=== PATIENT | female | born 1950 | race Caucasian/White ===

== ENCOUNTER → 2016-04-20 | Outpatient (CLI) | payer MEDICARE, MEDICAID ==
[~2016-04-20] MED LIST: ABILIFY20 MG PO; ALLFEN400 MG PO; ASPIRIN 32325 MG/TAB PO; ASPIRIN E.C. 8181 MG PO; ATIVAN 0.50.5 MG/TAB PO; CLARITIN 1010 MG/TAB PO; COGENTIN 1MG1 MG/TAB PO; DEPAKOTE 250MG250 MG PO; DESYREL 50MG50 MG PO; GERI-TUSSI100 MG/5 M PO; HALDOL 1MG T1 MG/TAB PO; INVEGA6 MG PO; IPRATROPIUM BROM3 M1 IH; KLONOPIN 1MG1 MG PO; LITHIUM 30300 MG/CAP PO; LITHOBID 3300 MG/TAB PO; MACROBID 1100 MG/CAP; MACROBID 1100 MG/CAP PO; MIRALAX PA17 GM/Dose PO; MULTIVITAMIN1 CTB PO; NORCO 325 MG-51 TAB PO; NYSTATIN OR100 MU/ML; RISPERDAL 1M1 MG/TAB PO; RISPERDAL2 MG PO; ROXICODONE 55 MG/TAB PO; SALINE MIST 4545 ML; STOOL SOFTENER100 M2 PO; TOPROL XL 25MG25 MG PO; TYLENOL 325MG325 MG PO; TYLENOL 500MG500 MG PO; TYLENOL 8 HR PO; ULTRAM 50MG TAB50 MG PO; ZYRTEC 10MG10 MG PO; [UNRECOGNIZED DRUG - OTHER] IJ
== END ==
LOC: BHSO 10:52
DX: F25.0 Schizoaffective disorder, bipolar type (principal)

== ENCOUNTER → 2016-06-29 | Outpatient (CLI) | payer MEDICARE, MEDICAID | LOC: BHSO 15:53 | DX: Z01.89 Encounter for other specified special examinations (principal) ==

== ENCOUNTER → 2016-08-03 | Outpatient (CLI) | payer MEDICARE, MEDICAID | LOC: BHSO 09:12 | DX: F20.9 Schizophrenia, unspecified (principal) ==

== ENCOUNTER → 2016-08-31 | Outpatient (CLI) | payer MEDICARE, MEDICAID | LOC: BHSO 09:15 | DX: F25.0 Schizoaffective disorder, bipolar type (principal) ==

== ENCOUNTER → 2016-09-28 | Outpatient (CLI) | payer MEDICARE, MEDICAID | LOC: BHSO 09:47 | DX: F25.0 Schizoaffective disorder, bipolar type (principal) ==

== ENCOUNTER → 2016-10-26 | Outpatient (CLI) | payer MEDICARE, MEDICAID | LOC: BHSO 10:02 | DX: F20.9 Schizophrenia, unspecified (principal) ==

== ENCOUNTER → 2016-11-28 | Outpatient (CLI) | payer MEDICARE, MEDICAID | LOC: BHSO 10:06 | DX: Z01.89 Encounter for other specified special examinations (principal) ==

== ENCOUNTER → 2016-12-28 | Outpatient (CLI) | payer MEDICARE, MEDICAID | LOC: BHSO 09:58 | DX: F25.0 Schizoaffective disorder, bipolar type (principal) ==

== ENCOUNTER → 2017-02-01 | Outpatient (CLI) | payer MEDICARE, MEDICAID | LOC: BHSO 11:10 | DX: F20.9 Schizophrenia, unspecified (principal) ==

== ENCOUNTER → 2017-04-17 | Outpatient (CLI) | payer MEDICARE, MEDICAID | LOC: BHSO 09:26 | DX: F25.0 Schizoaffective disorder, bipolar type (principal) | CPT/HCPCS: G0463 ==

== ENCOUNTER → 2017-07-17 | Outpatient (CLI) | payer MEDICARE, MEDICAID | LOC: BHSO 10:29 | DX: F20.9 Schizophrenia, unspecified (principal) | CPT/HCPCS: G0463 ==

== ENCOUNTER 2017-08-01 14:16 | Emergency (ER) | payer MEDICARE, MEDICAID ==
[~2017-08-01] VITALS: Ht 160 cm; Wt 97.3 kg
[2017-08-01 14:24] VITALS: BP 130/78; PULSE 118
[2017-08-01 15:38] LABS: COLLECTION METHOD CLEAN CATCH
[2017-08-01 15:52] LABS: MUCOUS Present /lpf; PH 5 (5-8); SQUAMOUS EPITHELIAL 0-2 /hpf; URINE APPEARANCE Clear; URINE BACTERIA Moderate /hpf; URINE BILIRUBIN Negative (NEGATIVE); URINE BLOOD 2+ (NEGATIVE); URINE COLOR Yellow; URINE GLUCOSE 2+ (NEGATIVE); URINE KETONE Negative (NEGATIVE); URINE LEUKOCYTE ESTERASE Negative (NEGATIVE); URINE NITRATE Negative (NEGATIVE); URINE PROTEIN(semi-quant) Negative (NEGATIVE); URINE RBC 0-2 /hpf; URINE UROBILINOGEN Negative (NEGATIVE)
[2017-08-01 17:40] LABS: BASO % 0.3 % (0.0-2.0); EOS % 0.3 % (0-4.0); GRAN # 3.6 (1.4-6.5); GRAN % 48.1 % (42.2-75.2); HEMATOCRIT 37.3 % (37.0-47.0); HEMOGLOBIN 11.9 g/dl (12.5-16.0); LYMPH # 2.1 (1.2-3.4); LYMPH % 28.2 % (20.0-51.0); MEAN CELL VOLUME 78 fl (80.0-100.0); MEAN CORPUSCULAR HEMOGLOBIN 25 pg (27.0-31.0); MEAN CORPUSCULAR HGB CONC 32 g/dl (33.0-37.0); MEAN PLATELET VOLUME 9.6 fl (7.4-10.4); MONO # 1.7 (0.1-0.6); MONO % 21.9 % (1.7-9.3); PLATELET COUNT 300 K/mm3 (130-400); RED BLOOD COUNT 4.81 M/mm3 (4.10-5.30); REDCELL DISTRIBUTION WIDTH-CV 15.5 % (11.5-14.5)
[2017-08-01 17:45] LABS: INR 1.1 (0.8-3.0); PROTHROMBIN TIME 12.6 SECONDS (9.7-12.8)
[2017-08-01 17:52] LABS: ALBUMIN 4.2 gm/dL (3.5-5.0); BILIRUBIN,TOTAL 0.6 mg/dL (0.0-1.0); CALCIUM 9.3 mg/dL (8.4-10.2); CREATININE, serum 0.53 mg/dL (0.52-1.25); POTASSIUM 4.2 mmol/L (3.4-5.0)
[2017-08-01 17:59] LABS: TROPONIN-I 0.025 ng/mL (0.000-0.034)
== END 2017-08-01 20:11 | disposition home or self-care (01) ==
LOC: COL.ER 14:16
PROVIDERS: Emergency Medicine
DX: F99 Mental disorder, not otherwise specified (principal); F20.9 Schizophrenia, unspecified; I10 Essential (primary) hypertension; J45.909 Unspecified asthma, uncomplicated; F17.210 Nicotine dependence, cigarettes, uncomplicated; Z86.79 Personal history of other diseases of the circulatory system; Z98.890 Other specified postprocedural states

== ENCOUNTER 2017-08-02 09:21 | Emergency (ER) | payer MEDICARE, MEDICAID ==
[2017-08-02 14:00] VITALS: PULSE 95
== END 2017-08-02 14:01 | disposition left against medical advice (07) ==
LOC: COL.ER 09:21
DX: F32.9 Major depressive disorder, single episode, unspecified (principal); F20.9 Schizophrenia, unspecified; Z91.14 Patient's other noncompliance with medication regimen

== ENCOUNTER → 2017-08-10 | Outpatient (CLI) | payer MEDICARE, MEDICAID | LOC: BHSO 13:26 | DX: F25.0 Schizoaffective disorder, bipolar type (principal) | CPT/HCPCS: G0463 ==

== ENCOUNTER → 2017-10-25 | Outpatient (CLI) | payer MEDICARE, MEDICAID | LOC: BHSO 13:45 | DX: F20.9 Schizophrenia, unspecified (principal) | CPT/HCPCS: G0463 ==

== ENCOUNTER → 2018-04-10 | Outpatient (CLI) | payer MEDICARE, MEDICAID | LOC: BHSO 10:19 | DX: F20.9 Schizophrenia, unspecified (principal) | CPT/HCPCS: G0463 ==

== ENCOUNTER → 2019-11-28 | Outpatient (CLI) | payer MEDICARE, MEDICAID | LOC: BHSO 10:20 | DX: F20.9 Schizophrenia, unspecified (principal) ==